=== PATIENT | female | born 1975 | race Two or more races ===

== ENCOUNTER 2020-04-27 12:36 | Emergency (ER) | payer OTHER, SELFPAY ==
[2020-04-27 12:51] VITALS: BP 153/74; PULSE 80; RESP 15; TEMP 36.4; O2SAT 99; BMI 27.3
--- NOTE | 2020-04-27 13:08 | ED.URI ---
HPI - URI/Sore Throat General Chief Complaint: Upper Respiratory Symptoms Stated Complaint: covid test Time Seen by Provider: 04/27/20 12:53 Source: patient Mode of arrival: ambulatory Limitations: no limitations History of Present Illness HPI Narrative: Cough, loss of taste since yesterday. Granddaughter at home has a cough as well. No fevers or chills. Onset (ago): hour(s) ( Yesterday) Consistency: constant Severity: mild Able to tolerate fluids by mouth: Yes Context: sick contacts Related Data Allergies Allergy/AdvReac Type Severity Reaction Status Date / Time No Known Allergies Allergy Verified 04/27/20 12:54 [No Known Allergies*] Review of Systems Review of Systems: Yes all other systems are reviewed and are negative Constitutional: Constitutional: Reports no additional constitutional complaints, Denies body ache(s), Denies chills, Denies fever(s), Denies headache(s) and Denies weakness Comments: loss of taste Eyes: Eyes: Reports no additional eye complaints and Denies change in vision ENT: Reports system reviewed and no additional complaints, except as documented, Denies headache(s), Denies nasal congestion, Denies nasal discharge and Denies neck pain Cardiovascular: Cardiovascular: Reports no additional cardiovascular complaints, Denies chest pain, Denies leg edema and Denies dyspnea Respiratory: Respiratory: Reports no additional respiratory complaints, Reports cough and Denies dyspnea Gastrointestinal: Gastrointestinal: Reports no additional gastrointestinal complaints, Denies abdominal pain, Denies diarrhea, Denies nausea and Denies vomiting Genitourinary: Genitourinary: Reports no additional female genitourinary complaints and Denies urinary incontinence Musculoskeletal: Musculoskeletal: Reports no additional musculoskeletal complaints, Denies back pain, Denies arthralgias, Denies joint swelling, Denies neck pain, Denies numbness and Denies tingling Integumentary/Breasts: Skin/Breast: Reports system reviewed and no additional complaints, except as docu and Denies rash Neurologic: Reports system reviewed and no additional complaints, except as documented, Denies Abnormal speech present, Denies headache(s), Denies numbness, Denies tingling and Denies weakness PMFSH Past Medical History Source: obtained from family and nursing notes reviewed Medical History No known health problems Social History Social History Advance Directives: No Advance Directives Information Provided: Yes Physical Exam Vital Signs and I&O and Narrative: Vital Signs and I&O: Vital Signs Temp 97.6 F 04/27/20 12:51 Pulse 80 04/27/20 12:51 Resp 15 04/27/20 12:51 BP 153/74 H 04/27/20 12:51 Pulse Ox 99 04/27/20 12:51 Intake & Output 04/26/20 04/27/20 04/27/20 18:59 06:59 18:59 Weight 65.771 kg Body Mass Index 27.3 Const: General: cooperative, healthy appearing, comfortable and no acute distress Orientation/consciousness: patient oriented x3 Limitations: no limitations HENMT: Head: Yes normal to inspection Ears: hearing grossly normal bilaterally General nose exam: Normal external nose present Face and sinus: Yes normal facial exam Mouth: Normal oral and palatal mucosa present Throat: Yes posterior oropharynx normal Eyes: General: appearance normal, both eyes and all related structures Pupils: Equal, round and reactive pupils present Neck: Neck: Yes normal visual inspection Chest: Chest palpation & inspection: normal inspection of the chest Resp: Effort & Inspection: normal respiratory effort Auscultation: clear to auscultation bilaterally Cardio: Rate: regular rate Rhythm: regular rhythm Peripheral pulses: Peripheral pulses 2+ throughout GI: Inspection: Yes normal to inspection Palpation (GI): Soft to palpation and nontender Auscultation: normal bowel sounds Back/Spine/Pelvis: Thoracic/Lumbar Spine: thoracic and lumbar spine normal to inspection Skin: General skin exam: no rashes or lesions noted Neuro: General: patient oriented x3, no focal motor deficits and normal sensation to monofilament Cranial nerves: Yes Equal, round and reactive pupils present Cognition (Neuro): normal cognition Speech: No Abnormal speech present Gait exam (Neuro): Normal gait present Motor exam (neuro): 5/5 motor strength present throughout Extrem: General: Yes normal to inspection MDM - URI/Sore Throat MDM Narrative Medical decision making narrative: cough and loss of taste since yesterday. Well appearing. Stable vital signs. Requesting COVID testing. This was sent. Reviewed worrisome signs and symptoms of when to return to the emergency department. Comfortable discharge home. Discharge Plan Discharge Clinical Impression: Viral infection Patient Disposition: Home, Self-Care Instructions: Viral Syndrome (ED) Additional Instructions: we have tested due today for COVID-19. We will call you in 1-2 days with her test results. If her test result is positive you will need to self-quarantine for total of 14 days. Increase fluids, rest Motrin or Tylenol for pain or fever if able as needed. Referrals: Physician,Unknown [Primary Care Provider] - 2 days Interventions: ED Discharge Assessment Last Done: 04/27/20 13:19 Discharge Date/Time: 04/27/20 13:20
== END 2020-04-27 13:20 | disposition home or self-care (01) ==
LOC: HO.ED 13:05
PROVIDERS: Nurse Practitioner Family; Emergency Provider Internal Medicine
DX: B34.9 Viral infection, unspecified (principal); Z20.828 Contact with and (suspected) exposure to other viral communicable diseases
CPT/HCPCS: 87635; 99283

== ENCOUNTER 2020-06-07 12:13 | Outpatient (REF) | payer OTHER, SELFPAY ==
[2020-06-07 13:40] LABS: MANUAL DIFF FLAG NO
[2020-06-07 13:45] LABS: Basophils Absolute Auto 0.1 X10*3/uL (0.0-0.2); Basophils Percent Auto 0.9 % (0-2); Eosinophils Absolute Auto 0.1 X10*3/uL (0.0-0.4); Eosinophils Percent Auto 1.7 % (0-4); Hemoglobin 12.6 g/dl (12.0-16.0); Imm Gran Abs Auto 0.03 X10*3/uL (0.00-0.03); Imm Gran Pct Auto 0.5 % (0.0-0.4); Lymphocytes Percent Auto 30.6 % (20-40); Mean Corpuscular HGB Conc 32.3 g/dl (31.0-35.0); Mean Corpuscular Hemoglobin 28.8 pg (27.0-33.0); Mean Platelet Volume 10.8 fL (9.4-12.3); Monocytes Absolute Auto 0.5 X10*3/uL (0.1-1.2); Neutrophils Absolute Auto 3.9 X10*3/uL (2.0-8.3); Neutrophils Percent Auto 59.3 % (45-73); Platelet Count 348 X10*3/uL (160-400); Red Blood Count 4.38 X10*6/uL (4.20-5.50); Red Cell Distribution Width 12.7 % (11.0-16.0); White Blood Count 6.6 X10*3/uL (4.8-10.8)
[2020-06-07 14:13] LABS: Alanine Aminotransferase 11 U/L (0-31); Albumin Level 4.1 g/dL (3.5-5.0); Alkaline Phosphatase 73 U/L (39-117); Anion Gap 10 (12-20); Aspartate Amino Transferase 17 U/L (5-31); Bilirubin Total 0.5 mg/dL (0.0-1.0); Blood Urea Nitrogen 11 mg/dL (9-16); Calcium 9.5 mg/dL (8.4-10.2); Carbon Dioxide 27 mmol/L (22-29); Chloride 104 mmol/L (96-108); Estimated Glomerular Filt Rate > 60; Glucose Random 97 mg/dL (60-115); Potassium 4.3 mmol/l (3.3-5.1); Sodium 137 mmol/L (135-145); Total Protein 7.3 g/dL (6.5-8.0)
[2020-06-07 14:21] LABS: Prothrombin Time 12.1 SEC (10.8-13.0)
[2020-06-07 14:24] LABS: Partial Thromboplastin Time 31.4 SEC (24.1-38.0)
[2020-06-07 14:34] LABS: Thyroid Stimulating Hormone 0.86 uIU/mL (0.32-4.0)
== END 2020-06-07 12:14 | disposition home or self-care (01) ==
LOC: HO.10HDL 12:13
PROVIDERS: Visit Provider Internal Medicine
DX: Z01.818 Encounter for other preprocedural examination (principal)
CPT/HCPCS: 36415; 80053; 84443; 85025; 85610; 85730

== ENCOUNTER 2020-07-24 15:37 | Outpatient (REF) | payer OTHER, SELFPAY | END 2020-07-24 15:38 | disposition home or self-care (01) | LOC: HO.LNP 15:37 | PROVIDERS: Visit Provider Internal Medicine | DX: T81.89XA Other complications of procedures, not elsewhere classified, initial encounter (principal) | CPT/HCPCS: 87071; 87077; 87186; 87205 ==

== ENCOUNTER 2020-08-12 13:39 | Inpatient (IN) | payer OTHER, SELFPAY ==
[2020-08-12 14:26] VITALS: BP 128/68; PULSE 97; RESP 17; TEMP 37; O2SAT 100; BMI 27.3
[2020-08-12 15:34] VITALS: BP 130/64; PULSE 92; RESP 18; TEMP 37.5; O2SAT 100
--- NOTE | 2020-08-12 15:35 | CT_ITS ---
EXAMINATION: CT ABDOMEN AND PELVIS WITH CONTRAST CLINICAL INFORMATION: Redness, swelling status post tummy tuck. Rule out abscess COMPARISON: MRI and CT scans 09/25/2017 TECHNIQUE: Multidetector volumetric images were obtained from the superior aspect of the liver through the pubic symphysis following administration 85 mL of Omnipaque 350 intravenous contrast. Sagittal and coronal reformatted images were obtained on the technologist's workstation. Oral contrast: No This CT examination was performed using dose optimization techniques as appropriate, variously including the following: *Automated exposure control *Adjustment of mA and/or kV according to patient size (this includes techniques or standardized protocols for targeted exams where dose is matched to indication/reason for exam; i.e. extremities or head) *Use of iterative reconstruction technique DLP: 510 mGy-cm FINDINGS: LUNG BASES: The visualized lung bases are unremarkable. LIVER, GALLBLADDER, AND BILIARY TREE: Again seen are several hemangiomata in the liver fully characterized on the prior MRI 09/25/2017 the largest is exophytic from the lateral segment of the left lobe of the liver and is unchanged in size. There is a 2 cm hemangioma in the right lobe of liver, also unchanged. Smaller lesions inferiorly in segment 6 are less well seen than on the prior MRI, not convincingly changed. No new lesions. No biliary ductal dilatation. The gallbladder is unremarkable with no evidence of radiopaque gallstones, gallbladder wall thickening, or obvious pericholecystic inflammatory changes. PANCREAS: Unremarkable. SPLEEN: Unremarkable. ADRENAL GLANDS: Unremarkable. KIDNEYS AND URETERS: The kidneys are normal in size, shape, and attenuation. No hydronephrosis, hydroureter, or calculi seen. No perinephric stranding. BLADDER: Unremarkable. GASTROINTESTINAL TRACT: Small hiatal hernia is present, new from prior study. The stomach and small bowel are nondilated. Normal appendix. Scattered colonic diverticulosis. No evidence of colitis or diverticulitis. ABDOMINAL WALL: There are postoperative changes consistent with history of recent abdominoplasty. There is subcutaneous fat that extends posteriorly between the rectus abdominis. There is circumferential fluid and fat stranding of the subcutaneous fat of the upper abdomen. There is a focal fluid collection across the anterior pelvis measuring 15.7 cm transverse by 2.2 cm AP. This extends cephalad to the left anterior abdominal wall at the level of the umbilicus where it measures 7.6 cm transverse by 1.5 cm AP. The entire collection measures 11.2 cm craniocaudal. There is incomplete peripheral enhancement, with peripheral rim enhancement posteriorly but not seen contiguously anteriorly there is overlying fluid and fat stranding. Also seen is skin thickening of the anterior abdominal wall. LYMPH NODES: Normal. VASCULAR: Unremarkable. PELVIC VISCERA: No adnexal mass. There is a heterogeneous enhancement pattern of the lower uterine segment and cervix, similar to the prior study. OSSEOUS STRUCTURES: Degenerative disc disease with vacuum disc phenomenon at L5-S1. There is a rudimentary disc at S1-S2. No acute or suspicious osseous abnormality. CT/CT abdomen pelvis w con IMPRESSION: Superimposed post on postoperative changes from prior abdominoplasty, there is a fluid collection within the subcutaneous fat of the pelvis and left anterior abdominal wall, superficial to the abdominal pelvic wall musculature, measuring up to 15.7 cm transverse by 2.2 cm AP by 11.2 cm craniocaudal. There is incomplete rim enhancement. This could represent a sterile or infected postoperative fluid collection. It is superficial and would be readily amenable to aspiration as clinically indicated. Also seen is fluid and fat stranding of the anterior abdomen with skin thickening of the anterior abdominal wall. Although these findings could be seen in the setting of cellulitis, they could be postoperative as well. Fluid and fat stranding are seen extending along both flanks and posteriorly at the level of the umbilicus and above. This is nonspecific also. The circumferential involvement raises the question of anasarca or dependent edema rather than circumferential soft tissue infection. There is a heterogeneous enhancement pattern of the lower uterine segment and cervix. The appearance was similar on the prior study. This can be normal but the degree of heterogeneity is slightly greater than typically seen. Consider correlation with direct visualization on gynecologic exam including Pap smear.
--- NOTE | 2020-08-12 15:37 | ED_ITS ---
HPI - Wound/Laceration General Chief Complaint: Wound/Laceration Stated Complaint: post op infection Time Seen by Provider: 08/12/20 15:21 Source: patient Mode of arrival: ambulatory Limitations: no limitations History of Present Illness HPI narrative: 45 yo female here with redness, swelling and open wounds to betzaida gutierrez s/p obdulio núñez 07/01/21. Went to [place] and had procedure. After flight home noticed wound to her lower abdomen, also had incision around umbilucus. Patient was seen by her primary care doctor and placed on reportedly 2 weeks of cephalexin. She finished this but continues to have drainage, open wounds, redness and tenderness to the abdomen. She tells me yesterday she had a temperature of a 100.6 degrees with some chills. Related Data Home Medications Medication Instructions Recorded Confirmed No Known Home Meds 08/12/20 08/12/20 Allergies Allergy/AdvReac Type Severity Reaction Status Date / Time No Known Allergies Allergy Verified 04/27/20 12:54 [No Known Allergies*] Review of Systems Review of Systems: Yes all other systems are reviewed and are negative Constitutional: Constitutional: Reports no additional constitutional complaints, Denies body ache(s), Reports chills, Reports fever(s), Denies headache(s) and Denies weakness Eyes: Eyes: Reports no additional eye complaints and Denies change in vision ENT: Reports system reviewed and no additional complaints, except as documented, Denies dizziness, Denies headache(s), Denies nasal congestion, Denies nasal discharge and Denies neck pain Cardiovascular: Cardiovascular: Reports no additional cardiovascular complaints, Denies chest pain, Denies leg edema and Denies dyspnea Respiratory: Respiratory: Reports no additional respiratory complaints, Denies cough and Denies dyspnea Gastrointestinal: Gastrointestinal: Reports no additional gastrointestinal complaints, Reports abdominal pain, Denies diarrhea, Denies nausea and Denies vomiting Genitourinary: Genitourinary: Reports no additional female genitourinary complaints and Denies urinary incontinence Musculoskeletal: Musculoskeletal: Reports no additional musculoskeletal complaints, Denies back pain, Denies arthralgias, Denies joint swelling, Denies neck pain, Denies numbness and Denies tingling Integumentary/Breasts: Skin/Breast: Reports system reviewed and no additional complaints, except as docu, Reports swelling, Denies rash and Reports wounds Neurologic: Denies Abnormal speech present, Denies dizziness, Denies headache(s), Denies numbness, Denies tingling and Denies weakness PMFSH Past Medical History Attestation statement: The following information was validated with the patient. Source: old records reviewed and nursing notes reviewed Medical History No known health problems Wound infection after surgery Surgical History Previous section Status post abdominoplasty Social History Social History Alcohol intake: never Smoking Status: Never smoker Advance Directives: No Advance Directives Information Provided: Yes Physical Exam Vital Signs: Vital Signs: Last Vital Signs Temp 99.5 F 08/12/20 15:34 Pulse 92 08/12/20 15:34 Resp 18 08/12/20 15:34 BP 130/64 08/12/20 15:34 Pulse Ox 100 08/12/20 15:34 Body Mass Index 27.3 Const: General: cooperative, healthy appearing, comfortable and no acute distress Orientation/consciousness: patient oriented x3 Limitations: no limitations HENMT: Head: Yes normal to inspection Ears: hearing grossly normal bi laterally General nose exam: Normal external nose present Face and sinus: Yes normal facial exam Mouth: Normal oral and palatal mucosa present Throat: Yes posterior oropharynx normal Eyes: General: appearance normal, both eyes and all related structures Pupils: Equal, round and reactive pupils present Neck: Neck: Yes normal visual inspection Chest: Chest palpation & inspection: normal inspection of the chest Resp: Effort & Inspection: normal respiratory effort Auscultation: clear to auscultation bilaterally Cardio: Rate: regular rate Rhythm: regular rhythm Peripheral pulses: Peripheral pulses 2+ throughout GI: Other: Inspection: Yes normal to inspection Palpation (GI): Tenderness to palpation present (GI) (Mild tenderness. Some firmness and induration around the wounds. ) Auscultation: normal bowel sounds Back/Spine/Pelvis: Thoracic/Lumbar Spine: thoracic and lumbar spine normal to inspection Skin: General skin exam: no rashes or lesions noted Neuro: General: patient oriented x3, no focal motor deficits and normal sensation to monofilament Cranial nerves: Yes Equal, round and reactive pupils present Cognition (Neuro): normal cognition Speech: No Abnormal speech present Gait exam (Neuro): Normal gait present Motor exam (neuro): 5/5 motor strength present throughout Extrem: General: Yes normal to inspection Course Course Course Narrative: 45 year old female here with nonhealing surgical wounds, drainage, redness, tenderness and now fever status post tummy tuck in [place]. Patient has 2 open wounds with local erythema, tenderness, firmness. The lower wound has some tunneling with exudate covering the wound base. Patient will need labs including blood cultures and lactic acid. Will check CT abdomen and pelvis to rule out abscess and evaluate extent. At this time infection is suspected. Antibiotics ordered. 1600-Seen by Dr Thompson. Wound culture sent. Patient will likely need admission. 1715-CT reviewed with Dr. thompson Plan for admission. MDM - Wound/Laceration Medical Records Attestation: I reviewed the patient's medical records. Lab Data Attestation: I reviewed the patient's lab results. Result diagrams: 08/12/20 15:55 08/12/20 15:55 Labs: Lab Results 08/12/20 08/12/20 08/12/20 Range/Units 15:55 15:55 15:55 WBC 12.0 H (4.8-10.8) X10*3/uL RBC 3.77 L (4.20-5.50) X10*6/uL Hgb 9.6 L D (12.0-16.0) g/dl Hct 31.5 L (37-47) % MCV 83.6 (80-98) fL MCH 25.5 L (27.0-33.0) pg MCHC 30.5 L (31.0-35.0) g/dl RDW 13.8 (11.0-16.0) % Plt Count 360 (160-400) X10*3/uL MPV 10.8 (9.4-12.3) fL Immature Gran % (Auto) 0.3 (0.0-0.4) % Neut % (Auto) 69.8 (45-73) % Lymph % (Auto) 20.9 (20-40) % Mayes % (Auto) 7.9 (2-11) % Eos % (Auto) 0.7 (0-4) % Baso % (Auto) 0.4 (0-2) % Lymph # (Auto) 2.5 (1.2-4.9) X10*3/uL Mayes # (Auto) 1.0 (0.1-1.2) X10*3/uL Eos # (Auto) 0.1 (0.0-0.4) X10*3/uL Baso # (Auto) 0.1 (0.0-0.2) X10*3/uL Abs Immat Gran (auto) 0.03 (0.00-0.03) X10*3/uL Absolute Neuts (auto) 8.3 (2.0-8.3) X10*3/uL Absolute Nucleated RBC 0.000 (0.0-0.012) X10*3/uL Nucleated RBC % (auto) 0.0 (0.0-0.2) /100WBC Sodium 138 (135-145) mmol/L Potassium 4.0 (3.3-5.1) mmol/l Chloride 102 (96-108) mmol/L Carbon Dioxide 25 (22-29) mmol/L Anion Gap 15 (12-20) BUN 8 L (9-16) mg/dL Creatinine 0.73 (0.5-1.4) mg/dL Estim Creat Clear Calc 84.4 Estimated GFR > 60 Random Glucose 86 (60-115) mg/dL Lactic Acid 0.8 (0.5-2.0) mmol/L Calcium 9.0 (8.4-10.2) mg/dL Total Bilirubin 1.0 (0.0-1.0) mg/dL Direct Bilirubin 0.3 (0.0-0.5) mg/dL AST 24 D (5-31) U/L ALT 7 (0-31) U/L Alkaline Phosphatase 76 (39-117) U/L Total Protein 7.4 (6.5-8.0) g/dL Albumin 3.9 (3.5-5.0) g/dL COVID-19 ([facility]) (Negative) COVID-19 Clin Com 08/12/20 Range/Units 15:55 WBC (4.8-10.8) X10*3/uL RBC (4.20-5.50) X10*6/uL Hgb (12.0-16.0) g/dl Hct (37-47) % MCV (80-98) fL MCH (27.0-33.0) pg MCHC (31.0-35.0) g/dl RDW (11.0-16.0) % Plt Count (160-400) X10*3/uL MPV (9.4-12.3) fL Immature Gran % (Auto) (0.0-0.4) % Neut % (Auto) (45-73) % Lymph % (Auto) (20-40) % Mayes % (Auto) (2-11) % Eos % (Auto) (0-4) % Baso % (Auto) (0-2) % Lymph # (Auto) (1.2-4.9) X10*3/uL Mayes # (Auto) (0.1-1.2) X10*3/uL Eos # (Auto) (0.0-0.4) X10*3/uL Baso # (Auto) (0.0-0.2) X10*3/uL Abs Immat Gran (auto) (0.00-0.03) X10*3/uL Absolute Neuts (auto) (2.0-8.3) X10*3/uL Absolute Nucleated RBC (0.0-0.012) X10*3/uL Nucleated RBC % (auto) (0.0-0.2) /100WBC Sodium (135-145) mmol/L Potassium (3.3-5.1) mmol/l Chloride (96-108) mmol/L Carbon Dioxide (22-29) mmol/L Anion Gap (12-20) BUN (9-16) mg/dL Creatinine (0.5-1.4) mg/dL Estim Creat Clear Calc Estimated GFR Random Glucose (60-115) mg/dL Lactic Acid (0.5-2.0) mmol/L Calcium (8.4-10.2) mg/dL Total Bilirubin (0.0-1.0) mg/dL Direct Bilirubin (0.0-0.5) mg/dL AST (5-31) U/L ALT (0-31) U/L Alkaline Phosphatase (39-117) U/L Total Protein (6.5-8.0) g/dL Albumin (3.5-5.0) g/dL COVID-19 ([facility]) Negative (Negative) COVID-19 Clin Com See Note Imaging Data CT scan - abdomen: Attestation: I personally reviewed and interpreted this imaging study as follows: Radiologist's impression: Superimposed post on postoperative changes from prior abdominoplasty, there is a fluid collection within the subcutaneous fat of the pelvis and left anterior abdominal wall, superficial to the abdominal pelvic wall musculature, measuring up to 15.7 cm transverse by 2.2 cm AP by 11.2 cm craniocaudal. There is incomplete rim enhancement. This could represent a sterile or infected postoperative fluid collection. It is superficial and would be readily amenable to aspiration as clinically indicated. Also seen is fluid and fat stranding of the anterior abdomen with skin thickening of the anterior abdominal wall. Although these findings could be seen in the setting of cellulitis, they could be postoperative as well. Fluid and fat stranding are seen extending along both flanks and posteriorly at the level of the umbilicus and above. This is nonspecific also. The circumferential involvement raises the question of anasarca or dependent edema rather than circumferential soft tissue infection. There is a heterogeneous enhancement pattern of the lower uterine segment and cervix. The appearance was similar on the prior study. This can be normal but the degree of heterogeneity is slightly greater than typically seen. Consider correlation with direct visualization on gynecologic exam including Pap smear. Discharge Plan Discharge Clinical Impression: Wound infection after surgery, Status post abdominoplasty, Leukocytosis Patient Disposition: Admitted As Inpatient
[2020-08-12 16:02] LABS: Basophils Absolute Auto 0.1 X10*3/uL (0.0-0.2); Basophils Percent Auto 0.4 % (0-2); Eosinophils Absolute Auto 0.1 X10*3/uL (0.0-0.4); Eosinophils Percent Auto 0.7 % (0-4); Hematocrit 31.5 % (37-47); Hemoglobin 9.6 g/dl (12.0-16.0); Imm Gran Abs Auto 0.03 X10*3/uL (0.00-0.03); Imm Gran Pct Auto 0.3 % (0.0-0.4); Lymphocytes Absolute Auto 2.5 X10*3/uL (1.2-4.9); Lymphocytes Percent Auto 20.9 % (20-40); MANUAL DIFF FLAG NO; Mean Corpuscular HGB Conc 30.5 g/dl (31.0-35.0); Mean Corpuscular Hemoglobin 25.5 pg (27.0-33.0); Mean Corpuscular Volume 83.6 fL (80-98); Mean Platelet Volume 10.8 fL (9.4-12.3); Monocytes Percent Auto 7.9 % (2-11); Neutrophils Absolute Auto 8.3 X10*3/uL (2.0-8.3); Neutrophils Percent Auto 69.8 % (45-73); Platelet Count 360 X10*3/uL (160-400); Red Blood Count 3.77 X10*6/uL (4.20-5.50); Red Cell Distribution Width 13.8 % (11.0-16.0)
[2020-08-12] MEDS: Piperacillin Sodium/Tazobactam 3.375 GM in 0.9 % Sodium Chloride 50 ML IV ×2 (16:09→21:56)
[2020-08-12 16:20] LABS: COVID-19 Test Negative (Negative)
[2020-08-12 16:21] LABS: Lactic Acid 0.8 mmol/L (0.5-2.0)
[2020-08-12] MEDS: iohexoL 350 MG/ML 100 ML INFUS..BTL IV (16:23)
[2020-08-12 16:27] LABS: Alanine Aminotransferase 7 U/L (0-31); Albumin Level 3.9 g/dL (3.5-5.0); Alkaline Phosphatase 76 U/L (39-117); Anion Gap 15 (12-20); Aspartate Amino Transferase 24 U/L (5-31); Bilirubin Direct 0.3 mg/dL (0.0-0.5); Blood Urea Nitrogen 8 mg/dL (9-16); Carbon Dioxide 25 mmol/L (22-29); Chloride 102 mmol/L (96-108); Creatinine Clr Calc Pharmacy 84.4; Estimated Glomerular Filt Rate > 60; Glucose Random 86 mg/dL (60-115); Sodium 138 mmol/L (135-145); Total Protein 7.4 g/dL (6.5-8.0)
--- NOTE | 2020-08-12 16:32 | PM.HPGS ---
History of Present Illness History of Present Illness Date of Service: 08/13/20 Chief complaint: Wound infection S/P abdominoplasty Narrative: Kb Lim is a 45 year old female who came to the emergency room today because of an open wound on a recent abdominoplasty incision. She says she traveled to [place] last June 2020 and underwent abdominoplasty on 07/01/2020. She says she came back to [facility] after a little over a week. She had noticed some pain and drainage on 2 areas of the abdominal wall. She has noted a nonhealing wound on the mid portion of the transverse incision in the lower abdomen, wound as well on the umbilicus. She has noticed this for several days now. She says she had a low-grade temperature yesterday at 100.6. She describes some pain on the incision. In emergency room and was noted to have some redness and warmth incision as were as her ability this, with 2 open wounds. Furthermore, this seems to be some patchy areas of nonviable skin is fat. I was therefore consulted. Review of Systems Constitutional: Constitutional: Denies chills and Reports fever(s) (Low-grade) Cardiovascular: Cardiovascular: Denies chest pain, Denies dyspnea and Denies dyspnea on exertion Respiratory: Respiratory: Denies cough, Denies dyspnea and Denies dyspnea on exertion Gastrointestinal: Gastrointestinal: Denies hematochezia and Denies change in bowel habits Genitourinary: Genitourinary: Denies hematuria Musculoskeletal: Musculoskeletal: Denies back pain and Denies limited range of motion Neurologic: Denies focal weakness and Denies convulsions Psychiatric: Psychiatric: Denies depression and Denies mood swings [facility] Past Medical History Medical History No known health problems Wound infection after surgery Surgical History Surgical History Previous section Status post abdominoplasty Social History Social History Alcohol intake: never Smoking Status: Never smoker Advance Directives: No Advance Directives Information Provided: Yes Travel History Recent Out of Country Travel Within the Last 8 Weeks: Yes Out of Country Travel Destination/s Comment: [facility], for abdominoplasty Exposure or Possible Exposure to Illness During Travel: No Meds Allergies Allergy/AdvReac Type Severity Reaction Status Date / Time No Known Allergies Allergy Verified 04/27/20 12:54 [No Known Allergies*] Home Medications Medication Instructions Recorded Confirmed Type No Known Home Meds 08/12/20 08/12/20 History Physical Exam Vital Signs: Vital Signs: Last Vital Signs Temp 99.5 F 08/12/20 15:34 Pulse 92 08/12/20 15:34 Resp 18 08/12/20 15:34 BP 130/64 08/12/20 15:34 Pulse Ox 100 08/12/20 15:34 Body Mass Index 27.3 Const: Other: Looks well, nontoxic looking General: comfortable and no acute distress Orientation/consciousness: patient oriented x3 Neck: Neck: Yes no lymphadenopathy Resp: Auscultation: clear to auscultation bilaterally Cardio: Rhythm: regular rhythm GI: Palpation (GI): Soft to palpation, nontender and no guarding Abdomen image: 1. Incision 2. Open wound about 2 cm with mild cellulitis 3. Open wound about 2 cm with mild cellulitis Neuro: General: patient oriented x3 Results Results Labs: Short CBC 08/12/20 Range/Units 15:55 WBC 12.0 H (4.8-10.8) X10*3/uL Hgb 9.6 L D (12.0-16.0) g/dl Hct 31.5 L (37-47) % Plt Count 360 (160-400) X10*3/uL BMP 08/12/20 15:55 Sodium 138 Potassium 4.0 Chloride 102 Carbon Dioxide 25 BUN 8 L Creatinine 0.73 Calcium 9.0 Liver Function 08/12/20 Range/Units 15:55 Total Bilirubin 1.0 (0.0-1.0) mg/dL Direct Bilirubin 0.3 (0.0-0.5) mg/dL AST 24 D (5-31) U/L ALT 7 (0-31) U/L Alkaline Phosphatase 76 (39-117) U/L Albumin 3.9 (3.5-5.0) g/dL Assessment and Plan (1) Wound infection after surgery: Status: Acute She underwent abdominoplasty in [facility] last and has had warmth, drainage and fever at home the past few days. She ahs 2 open wounds, one on the umbilicus, and one on the midportion of the low transverse abdominoplasty incision. Both are about 2 cm in diameter, with exposed subcutaneous fat that appear to have some fat necrosis. She has warmth on the surrounding areas and some redness suggestive of a wound infection. Her CT scan shows a large fluid collection, likely seroma. I will start her on IV abx for a presumed wound infection. I explained to her that there is a change she will need operative debridement of the 2 open wounds as well as drainage of the fluid collection depending on how she does overnight. She is nontoxic looking and does not show signs of a necrotizing process. She understands the plan. I have cultured the open wound on the lower abdomen. We will adjust her abx course depending on the culture report. (2) Status post abdominoplasty: Status: Acute
[2020-08-12 17:06] LABS: Glucose Urine UA NEG (NEG); Leukocyte Esterase Urine NEG (NEG); Nitrite Urine NEG (NEG); Specific Gravity - Urine <= 1.005 (1.005-1.025); Urine Blood TRACE (NEG); Urine Ketones NEG (NEG); Urine Protein NEG (NEG-TRACE)
[2020-08-12 17:08] LABS: Appearance Urine CLEAR; Color Urine STRAW; UPreg QC Valid YES; Urine Pregnancy NEGATIVE (NEGATIVE)
[2020-08-12 17:18] LABS: Squamous Epithelial Cell Urine 2+ /LPF; WBC Urine 0-2 /HPF (0-4)
[2020-08-12] MEDS: Lactated Ringers 1,000 ML 80 ML IVCONT (17:38)
[2020-08-12 18:07] VITALS: BP 111/61; PULSE 100; RESP 18; TEMP 37.4; O2SAT 98
--- NOTE | 2020-08-12 21:19 | PC.NURSE ---
DUPLICATE UACC ORDERED- SECOND CANCELLED.
[2020-08-13] VITALS (8 sets, daily range): BP systolic 106–127; BP diastolic 56–73; PULSE 82–96; RESP 13–19; TEMP 36.5–37.2; O2SAT 97–100
[2020-08-13] MEDS: Piperacillin Sodium/Tazobactam 3.375 GM in 0.9 % Sodium Chloride 50 ML IV ×4 (03:37→21:40)
[2020-08-13] MEDS: Lactated Ringers 1,000 ML 80 ML IVCONT (04:49)
[2020-08-13] MEDS: 0.9 % Sodium Chloride Flush 3 ML SYRINGE IVFLUSH ×3 (08:04→21:40)
[2020-08-13 08:19] LABS: Hematocrit 29.4 % (37-47); Hemoglobin 9.1 g/dl (12.0-16.0); Mean Corpuscular Hemoglobin 25.7 pg (27.0-33.0); Mean Corpuscular Volume 83.1 fL (80-98); Mean Platelet Volume 11.3 fL (9.4-12.3); Platelet Count 336 X10*3/uL (160-400); Red Blood Count 3.54 X10*6/uL (4.20-5.50); Red Cell Distribution Width 13.9 % (11.0-16.0); White Blood Count 9.6 X10*3/uL (4.8-10.8)
--- NOTE | 2020-08-13 09:23 | PC.NURSE ---
surgery at bedside, okay to eat.
[2020-08-13] MEDS: Lidocaine HCl 1 % 20 ML VIAL SUBCUT (10:11)
--- NOTE | 2020-08-13 11:27 | P.PNGS_ITS ---
Subjective Subjective Date of Service: 08/13/20 Interval history: feels a little better no fever overnight no severe pain on abdominoplasty Physical Exam Vital Signs: Vital Signs: Last Vital Signs Temp 97.9 F 08/13/20 03:40 Pulse 82 08/13/20 09:14 Resp 16 08/13/20 09:14 BP 112/65 08/13/20 09:14 Pulse Ox 98 08/13/20 09:14 Body Mass Index 27.3 Laboratory Results WBC 9.6 X10*3/uL (4.8 -10.8) 08/13/20 07:52 RBC 3.54 X10*6/uL (4. 20-5.50) L 08/13/20 07:52 Hgb 9.1 g/dl (12.0-16 .0) L 08/13/20 07:52 Hct 29.4 % (37-47) L 08/13/20 07:52 MCV 83.1 fL (80-98) 08/13/20 07:52 MCH 25.7 pg (27.0-33. 0) L 08/13/20 07:52 MCHC 31.0 g/dl (31.0-3 5.0) 08/13/20 07:52 RDW 13.9 % (11.0-16.0 ) 08/13/20 07:52 Plt Count 336 X10*3/uL (160 -400) 08/13/20 07:52 MPV 11.3 fL (9.4-12.3 ) 08/13/20 07:52 Immature Gran % (A uto) 0.3 % (0.0-0.4) 08/12/20 15:55 Neut % (Auto) 69.8 % (45-73) 08/12/20 15:55 Lymph % (Auto) 20.9 % (20-40) 08/12/20 15:55 [place] % (Auto) 7.9 % (2-11) 08/12/20 15:55 Eos % (Auto) 0.7 % (0-4) 08/12/20 15:55 Baso % (Auto) 0.4 % (0-2) 08/12/20 15:55 Lymph # (Auto) 2.5 X10*3/uL (1.2 -4.9) 08/12/20 15:55 [place] # (Auto) 1.0 X10*3/uL (0.1 -1.2) 08/12/20 15:55 Eos # (Auto) 0.1 X10*3/uL (0.0 -0.4) 08/12/20 15:55 Baso # (Auto) 0.1 X10*3/uL (0.0 -0.2) 08/12/20 15:55 Abs Immat Gran (au to) 0.03 X10*3/uL (0. 00-0.03) 08/12/20 15:55 Absolute Neuts (au to) 8.3 X10*3/uL (2.0 -8.3) 08/12/20 15:55 Absolute Nucleated RBC 0.000 X10*3/uL (0 .0-0.012) 08/13/20 07:52 Nucleated RBC % (a uto) 0.0 /100WBC (0.0- 0.2) 08/13/20 07:52 Sodium 138 mmol/L (135-1 45) 08/12/20 15:55 Potassium 4.0 mmol/l (3.3-5 .1) 08/12/20 15:55 Chloride 102 mmol/L (96-10 8) 08/12/20 15:55 Carbon Dioxide 25 mmol/L (22-29) 08/12/20 15:55 Anion Gap 15 (12-20) 08/12/20 15:55 BUN 8 mg/dL (9-16) L 08/12/20 15:55 Creatinine 0.73 mg/dL (0.5-1 .4) 08/12/20 15:55 Estim Creat Clear Calc 84.4 08/12/20 15:55 Estimated GFR > 60 08/12/20 15:55 Random Glucose 86 mg/dL (60-115) 08/12/20 15:55 Lactic Acid 0.8 mmol/L (0.5-2 .0) 08/12/20 15:55 Calcium 9.0 mg/dL (8.4-10 .2) 08/12/20 15:55 Total Bilirubin 1.0 mg/dL (0.0-1. 0) 08/12/20 15:55 Direct Bilirubin 0.3 mg/dL (0.0-0. 5) 08/12/20 15:55 AST 24 U/L (5-31) D 08/12/20 15:55 ALT 7 U/L (0-31) 08/12/20 15:55 Alkaline Phosphata se 76 U/L (39-117) 08/12/20 15:55 Total Protein 7.4 g/dL (6.5-8.0 ) 08/12/20 15:55 Albumin 3.9 g/dL (3.5-5.0 ) 08/12/20 15:55 Urine Color STRAW 08/12/20 16:57 Urine Appearance CLEAR 08/12/20 16:57 Urine pH 6.0 (5.0-8.0) 08/12/20 16:57 Ur Specific Gravit y <= 1.005 (1.005- 1.025) 08/12/20 16:57 Urine Protein NEG MG/DL (NEG-TR CASTRO) 08/12/20 16:57 Urine Glucose (UA) NEG MG/DL (NEG) 08/12/20 16:57 Urine Ketones NEG MG/DL (NEG) 08/12/20 16:57 Urine Blood TRACE (NEG) 08/12/20 16:57 Urine Nitrite NEG (NEG) 08/12/20 16:57 Ur Leukocyte Kati ase NEG (NEG) 08/12/20 16:57 Urine RBC 1-4 /HPF (0) 08/12/20 16:57 Urine WBC 0-2 /HPF (0-4) 08/12/20 16:57 Ur Squamous Epith Cells 2+ /LPF 08/12/20 16:57 Urine Bacteria NONE /LPF 08/12/20 16:[address] NEGATIVE (NEGATI VE) 08/12/20 16:57 COVID-19 ([facility]) Negative (Negati ve) 08/12/20 15:55 COVID-19 Clin Com See Note 08/12/20 15:55 Impressions Abdomen/Pelvis CT 08/12/20 15:35 IMPRESSION: Superimposed post on postoperative changes from prior abdominoplasty, there is a fluid collection within the subcutaneous fat of the pelvis and left anterior abdominal wall, superficial to the abdominal pelvic wall musculature, measuring up to 15.7 cm transverse by 2.2 cm AP by 11.2 cm craniocaudal. There is incomplete rim enhancement. This could represent a sterile or infected postoperative fluid collection. It is superficial and would be readily amenable to aspiration as clinically indicated. Also seen is fluid and fat stranding of the anterior abdomen with skin thickening of the anterior abdominal wall. Although these findings could be seen in the setting of cellulitis, they could be postoperative as well. Fluid and fat stranding are seen extending along both flanks and posteriorly at the level of the umbilicus and above. This is nonspecific also. The circumferential involvement raises the question of anasarca or dependent edema rather than circumferential soft tissue infection. There is a heterogeneous enhancement pattern of the lower uterine segment and cervix. The appearance was similar on the prior study. This can be normal but the degree of heterogeneity is slightly greater than typically seen. Consider correlation with direct visualization on gynecologic exam including Pap smear. Const: General: comfortable and no acute distress Resp: Effort & Inspection: normal respiratory effort Cardio: Rate: regular rate GI: Other: soft, some warmth on skin, redness has faded, 2 open wounds - umbilicus and lower abd along incision, with dry, exposed fat, no pus, superficial fat necrosis Progress Note: A&P Assessment and plan (1) Wound infection after surgery: Status: Acute Assessment and Plan: both open wounds now appear dry, with superficial necrosis of subcutaneous fat redness has faded WBC now normal does not appear to need debridement large amount of fluid under abdominal flap above fascia on CT I therefore explained to her it is best to do aspiration; explained technique of procedure, risks, benefits and alternatives and she had given consent I chose area to the left of the lower abdominal wound based on CT image skin prepped and draped lidocaine 1% used for local anesthesia I used a g20 needle, advanced into collection - clear, seroma fluid aspirated, 50 cc wet to dry dressings then applied to open wounds she tolerated the procedure well plan IV abx until sudarshan, then dc home will need office ffup for wound care (2) Status post abdominoplasty: Status: Acute Fall Risk Details Current Medications: Current Medications Generic Name Dose Route Start Last Admin Trade Name Freq PRN Reason Stop Dose Admin Acetaminophen 650 mg 08/12/20 16:41 Acetaminophen 325 Mg Tablet PO Q6H PRN Fever Piperacillin Sod/Tazobactam 50 mls @ 100 mls/hr 08/12/20 22:00 08/13/20 09:54 Sod 3.375 gm/ Sodium Chloride IV Infused Q6H PAXTON Infusion Morphine Sulfate 2 mg 08/12/20 16:41 Morphine Sulfate 2 Mg/Ml Cartridge IVPUSH Q3H PRN Pain Pharmacy Consult 1 each 08/12/20 16:50 Consult Rx Perform Med Rec MISCELLANE ONCE PRN Consult order Sodium Chloride 3 ml 08/13/20 00:00 08/13/20 08:04 0.9 % Sodium Chloride Flush 3 Ml Syringe IVFLUSH 3 ml QSHIFT PAXTON Administration Time Spent With Patient Time: Total time spent is greater than 50% in coordination of care (as documented) at patient's floor/unit and/or counseling patient: Time with patient: 15 - 24 minutes
--- NOTE | 2020-08-13 12:22 | PC.NURSE ---
called to med surg for report
--- NOTE | 2020-08-13 12:43 | PC.NURSE ---
nurse to nurse given to rj (rn), pt aware of plan of care for admission to hosp.
--- NOTE | 2020-08-13 15:48 | MHC.CM.NN ---
PATIENT IS FULLY INDEPENDENT NO DME OR VNA SERVICES. HER CAR IS IN THE C LOT. PLAN IS FOR IV ABX OVERNIGHT, AND DISCHARGE TOMORROW ON PO ABX. CASE MANAGEMENT FOLLOWING FOR ANY CHANGE IN DISCHARGE NEEDS.
[2020-08-13] MEDS: Acetaminophen 325 MG TABLET 650 MG PO (21:38)
[2020-08-14] MEDS: Piperacillin Sodium/Tazobactam 3.375 GM in 0.9 % Sodium Chloride 50 ML IV ×2 (03:57→10:04)
[2020-08-14 04:00] VITALS: BP 106/62; PULSE 77; RESP 18; TEMP 36.4; O2SAT 98
[2020-08-14 08:00] VITALS: BP 119/77; PULSE 83; RESP 18; TEMP 36.6; O2SAT 99
--- NOTE | 2020-08-14 09:20 | P.PNGS_ITS ---
Subjective Subjective Date of Service: 08/14/20 Interval history: feels well denies pain no fever Physical Exam Vital Signs: Vital Signs: Last Vital Signs Temp 97.8 F 08/14/20 08:00 Pulse 83 08/14/20 08:00 Resp 18 08/14/20 08:00 BP 119/77 08/14/20 08:00 Pulse Ox 99 08/14/20 08:00 Body Mass Index 27.3 Const: General: comfortable and no acute distress Resp: Effort & Inspection: normal respiratory effort Cardio: Rhythm: regular rhythm GI: Other: no cellulitis, open wound on umbilicus iwth exposed subq layer, no pus, no gangrene; oepn wound on lower abd along incision, clean, exposed subq fat, no gangrene or pus Progress Note: A&P Assessment and plan (1) Wound infection after surgery: Problem details: dressings changed wet to dry applied no cellulitis now ok to dc home aspirated yesterday - clear serous fluid ffup in office explained wound care to pt Status: Acute (2) Status post abdominoplasty: Status: Acute Fall Risk Details Current Medications: Current Medications Generic Name Dose Route Start Last Admin Trade Name Freq PRN Reason Stop Dose Admin Acetaminophen 650 mg 08/12/20 16:41 08/13/20 21:38 Acetaminophen 325 Mg Tablet PO 650 mg Q6H PRN Administration Fever Piperacillin Sod/Tazobactam 50 mls @ 100 mls/hr 08/12/20 22:00 08/14/20 05:00 Sod 3.375 gm/ Sodium Chloride IV Infused Q6H PAXTON Infusion Morphine Sulfate 2 mg 08/12/20 16:41 Morphine Sulfate 2 Mg/Ml Cartridge IVPUSH Q3H PRN Pain Pharmacy Consult 1 each 08/12/20 16:50 Consult Rx Perform Med Rec MISCELLANE ONCE PRN Consult order Sodium Chloride 3 ml 08/13/20 00:00 08/13/20 21:40 0.9 % Sodium Chloride Flush 3 Ml Syringe IVFLUSH 3 ml QSHIFT PAXTON Administration Time Spent With Patient Time: Total time spent is greater than 50% in coordination of care (as document ed) at patient's floor/unit and/or counseling patient: Time with patient: 15 - 24 minutes
[2020-08-14] MEDS: 0.9 % Sodium Chloride Flush 3 ML SYRINGE IVFLUSH (10:04)
--- NOTE | 2020-08-14 10:46 | MHC.CM.PN ---
pt dcd home no servceis
--- NOTE | 2020-08-16 10:24 | P.DS_ITS ---
DS: Providers Provider Date of Service: 08/16/20 Date of admission: 08/12/20 16:41 Primary care physician: Shadi Khan MD DS: Diagnosis Discharge Diagnosis (1) Wound infection after surgery: Status: Acute (2) Status post abdominoplasty: Status: Acute DS: Medications Discharge Medications Home Medications: Home Medications Medication Instructions Recorded Confirmed No Known Home Meds 08/12/20 08/12/20 Previous Rx's Medication Instructions Recorded amoxicillin-pot clavulanate 1 tab PO BID #14 tab 08/14/20 [Augmentin] DS: Summary Hospital Course Hospital Course: BRIEF HPI:Kb Lim is a 45 year old female who came to the emergency room today because of an open wound on a recent abdominoplasty incision. She says she traveled to [place] last June 2020 and underwent abdominoplasty on 07/01/2020. She says she came back to [facility] after a little over a week. She had noticed some pain and drainage on 2 areas of the abdominal wall. She has noted a nonhealing wound on the mid portion of the transverse incision in the lower abdomen, wound as well on the umbilicus. She has noticed this for several days now. She says she had a low-grade temperature yesterday at 100.6. She describes some pain on the incision. In the ED, she was noted to have some redness and warmth at the incision with [address] scan shows a large fluid collection, likely seroma. Surgery was therefore consulted. HOSPITAL COURSE: She was admitted to the surgical service for further treatment of the wound infection. She was started on IV zosyn, IVF. Possible need for operative debridement of the 2 open wounds as well as drainage of the fluid col lection was discussed. She was nontoxic appearing and without signs of a necrotizing process. Wound cultures were obtained. The patient had an uncomplicated recovery course. She improved symptomatically and the cellulitis improved with IV antibiotics. There was a large amount of fluid under abdominal flap above fascia on the left of the lower abdominal wound based on CT. It was decided to proceed with aspiration which was performed at bedside by Dr. Thompson with the patient's consent. Serous fluid was extracted. She was kept inpatient one more day for IV abx. Wet to dry dressings were appli ed to her two open wounds. Her WBC count normalized and her vitals remained stable. On the day of discharge, there was no evidence of cellulitis. She was instructed on daily dressing changes with wet to dry dressings. She is to follow up with Dr. Thompson in office for further wound care. She was discharged to home on 08/14/20 in stable condition on a course of Augmentin. Wound cultures came back positive for Klebsiella pneumoniae and Staphylococcus aureus, resistant to Amoxicillin following her discharge. A new prescription for Levaquin 500mg PO daily was sent to her pharmacy and the patient was notified by Dr. Thompson. Status at Discharge Functional status at discharge: independent ambulation Overall status at discharge: patient is progressing back to baseline Time Spent with Patient Time attestation: Total time spent providing and/or coordinating discharge services: Discharge coordination time: Less than 30 minutes Physical Exam Vital Signs: Vital Signs: Last Vital Signs Temp 97.8 F 08/14/20 08:00 Pulse 83 08/14/20 08:00 Resp 18 08/14/20 08:00 BP 119/77 08/14/20 08:00 Pulse Ox 99 08/14/20 08:00 Body Mass Index 27.3 Const: General: healthy appearing, comfortable, no acute distress and alert Orientation/consciousness: patient oriented x3 Resp: Effort & Inspection: normal respiratory effort GI: Other: open wound on umbilicus with exposed subq layer, no pus, no gangrene; open wound on lower abd along incision, clean, exposed subq fat, no gangrene or pus Palpation (GI): Soft to palpation, nontender, no guarding and not rigid Skin: General skin exam: no rashes or lesions noted Neuro: General: patient oriented x3 Extrem: General: Yes no clubbing, cyanosis or edema DS: Data Data Completed and Pending Labs on day of discharge: Laboratory Tests 08/12/20 08/12/20 08/12/20 15:55 15:55 15:55 WBC 12.0 H RBC 3.77 L Hgb 9.6 L D Hct 31.5 L MCV 83.6 MCH 25.5 L MCHC 30.5 L RDW 13.8 Plt Count 360 MPV 10.8 Immature Gran % (Auto) 0.3 Neut % (Auto) 69.8 Lymph % (Auto) 20.9 [place] % (Auto) 7.9 Eos % (Auto) 0.7 Baso % (Auto) 0.4 Lymph # (Auto) 2.5 [place] # (Auto) 1.0 Eos # (Auto) 0.1 Baso # (Auto) 0.1 Abs Immat Gran (auto) 0.03 Absolute Neuts (auto) 8.3 Absolute Nucleated RBC 0.000 Nucleated RBC % (auto) 0.0 Sodium 138 Potassium 4.0 Chloride 102 Carbon Dioxide 25 Anion Gap 15 BUN 8 L Creatinine 0.73 Estim Creat Clear Calc 84.4 Estimated GFR > 60 Random Glucose 86 Lactic Acid 0.8 Calcium 9.0 Total Bilirubin 1.0 Direct Bilirubin 0.3 AST 24 D ALT 7 Alkaline Phosphatase 76 Total Protein 7.4 Albumin 3.9 Urine Color Urine Appearance Urine pH Ur Specific [place] Urine Protein Urine Glucose (UA) Urine Ketones Urine Blood Urine Nitrite Ur Leukocyte Esterase Urine RBC Urine WBC Ur Squamous Epith Cells Urine Bacteria Urine Test COVID-19 ([facility]) COVID-19 Voice[employer] Com 08/12/20 08/12/20 08/13/20 15:55 16:57 07:52 WBC 9.6 RBC 3.54 L Hgb 9.1 L Hct 29.4 L MCV 83.1 MCH 25.7 L MCHC 31.0 RDW 13.9 Plt Count 336 MPV 11.3 Immature Gran % (Auto) Neut % (Auto) Lymph % (Auto) [place] % (Auto) Eos % (Auto) Baso % (Auto) Lymph # (Auto) [place] # (Auto) Eos # (Auto) Baso # (Auto) Abs Immat Gran (auto) Absolute Neuts (auto) Absolute Nucleated RBC 0.000 Nucleated RBC % (auto) 0.0 Sodium Potassium Chloride Carbon Dioxide Anion Gap BUN Creatinine Estim Creat Clear Calc Estimated GFR Random Glucose Lactic Acid Calcium Total Bilirubin Direct Bilirubin AST ALT Alkaline Phosphatase Total Protein Albumin Urine Color STRAW Urine Appearance CLEAR Urine pH 6.0 Ur Specific [place] <= 1.005 Urine Protein NEG Urine Glucose (UA) NEG Urine Ketones NEG Urine Blood TRACE Urine Nitrite NEG Ur Leukocyte Esterase NEG Urine RBC 1-4 Urine WBC 0-2 Ur Squamous Epith Cells 2+ Urine Bacteria NONE Urine Test NEGATIVE COVID-19 ([facility]) Negative COVID-19 Voice[employer] Com See Note Preliminary micro results at discharge 08/12/20 16:04 Blood Culture - Preliminary Blood - Venous No growth after 48 hours. 08/12/20 15:55 Blood Culture - Preliminary Blood - Venous No growth after 48 hours. Discharge Plan Discharge Patient Disposition: Home, Self-Care Referrals: Shadi Khan MD [Primary Care Provider] - Shadi Thompson MD [Physician] - 1 Week Discharge Medications: No Action levofloxacin 500 mg tablet 500 mg PO DAILY Qty: 5 RF: 0 sulfamethoxazole-trimethoprim [Bactrim DS] 800-160 mg tablet 1 tab PO BID Qty: 10 RF: 0 Discharge Orders: Discharge Order (Routine); Ordered 08/14/20 Ordered By: Shadi Thompson Diet: regular diet Activity on Discharge: As tolerated Stand Alone Forms: Patient Portal Discharge page Activity Restrictions/Additional Instructions: wet to dry dressings with gauze to open wounds ok to shower call office for ffup in 2 weeks [phone] Visit Report Forms: Patient Portal Discharge page Care Plan Goals: Wound healing; return to baseline health & activity following recovery Health Concerns: S/p abdominoplasty; wound infection Plan of Treatment: Antibiotics and wound care; f/u in office with Dr. Thompson Discharge Date/Time: 08/14/20 11:53
== END 2020-08-14 11:53 | disposition home or self-care (01) | DRG 721 ==
LOC: HO.ED 15:28 → HO.EDOVER 17:01 → HO.S3 08-13 11:33
PROVIDERS: Nurse Practitioner Family; Admitting Provider Surgery; Emergency Provider Internal Medicine; PCP Internal Medicine; Visit Provider Surgery
DX: T81.41XA Infection following a procedure, superficial incisional surgical site, initial encounter (principal); L03.311 Cellulitis of abdominal wall; B96.1 Klebsiella pneumoniae [K. pneumoniae] as the cause of diseases classified elsewhere; B95.61 Methicillin susceptible Staphylococcus aureus infection as the cause of diseases classified elsewhere; Z20.822 Contact with and (suspected) exposure to COVID-19
CPT/HCPCS: 36415; 74177; 80048; 80076; 81001; 81025; 83605; 85025; 85027; 87040; 87071; 87077; 87147; 87186; 87205; 87635; 96365; 99285; J2543; Q9967

== ENCOUNTER 2020-08-22 14:24 | Outpatient (REF) | payer OTHER, SELFPAY | END 2020-08-22 14:25 | disposition home or self-care (01) | LOC: HO.LNP 14:24 | PROVIDERS: Visit Provider Internal Medicine | DX: D72.829 Elevated white blood cell count, unspecified (principal); Z98.890 Other specified postprocedural states; T81.41XD Infection following a procedure, superficial incisional surgical site, subsequent encounter; Z79.899 Other long term (current) drug therapy | CPT/HCPCS: 87071; 87077; 87186; 87205 ==

== ENCOUNTER → 2020-08-28 14:27 | Outpatient (BNVA) | payer OTHER, SELFPAY | PROVIDERS: PCP Internal Medicine; Visit Provider Surgery | DX: T81.49XA Infection following a procedure, other surgical site, initial encounter (principal) | CPT/HCPCS: 99212 ==

== ENCOUNTER → 2020-09-11 15:48 | Outpatient (BNVA) | payer OTHER, SELFPAY | PROVIDERS: PCP Internal Medicine; Visit Provider Surgery | DX: T81.49XA Infection following a procedure, other surgical site, initial encounter (principal); Z98.890 Other specified postprocedural states | CPT/HCPCS: 99212 ==

== ENCOUNTER → 2020-10-09 15:28 | Outpatient (BNVA) | payer OTHER, SELFPAY | PROVIDERS: PCP Internal Medicine; Visit Provider Surgery | DX: T81.41XD Infection following a procedure, superficial incisional surgical site, subsequent encounter (principal) | CPT/HCPCS: 99212 ==

== ENCOUNTER → 2020-11-13 15:27 | Outpatient (BNVA) | payer OTHER, SELFPAY | PROVIDERS: PCP Internal Medicine; Visit Provider Surgery | DX: T81.49XD Infection following a procedure, other surgical site, subsequent encounter (principal) | CPT/HCPCS: 99212 ==

== ENCOUNTER 2021-01-09 15:23 | Outpatient (REF) | payer OTHER, SELFPAY ==
[2021-01-09 15:48] LABS: MANUAL DIFF FLAG NO
[2021-01-09 15:54] LABS: Basophils Percent Auto 0.3 % (0-2); Eosinophils Absolute Auto 0.2 X10*3/uL (0.0-0.4); Eosinophils Percent Auto 1.7 % (0-4); Hematocrit 38.2 % (37-47); Hemoglobin 11.8 g/dl (12.0-16.0); Imm Gran Abs Auto 0.03 X10*3/uL (0.00-0.03); Imm Gran Pct Auto 0.3 % (0.0-0.4); Lymphocytes Absolute Auto 2.8 X10*3/uL (1.2-4.9); Lymphocytes Percent Auto 31.4 % (20-40); Mean Corpuscular HGB Conc 30.9 g/dl (31.0-35.0); Mean Corpuscular Hemoglobin 25.3 pg (27.0-33.0); Mean Corpuscular Volume 81.8 fL (80-98); Mean Platelet Volume 10.9 fL (9.4-12.3); Monocytes Absolute Auto 0.7 X10*3/uL (0.1-1.2); Monocytes Percent Auto 7.2 % (2-11); Neutrophils Absolute Auto 5.3 X10*3/uL (2.0-8.3); Neutrophils Percent Auto 59.1 % (45-73); Platelet Count 334 X10*3/uL (160-400); Red Blood Count 4.67 X10*6/uL (4.20-5.50); Red Cell Distribution Width 15.9 % (11.0-16.0)
[2021-01-09 16:25] LABS: Alanine Aminotransferase 10 U/L (0-31); Albumin Level 4.1 g/dL (3.5-5.0); Alkaline Phosphatase 74 U/L (39-117); Aspartate Amino Transferase 17 U/L (5-31); Bilirubin Total 0.4 mg/dL (0.0-1.0); Blood Urea Nitrogen 12 mg/dL (9-16); C Reactive Protein 0.67 mg/dL (< or = 0.50); Calcium 9.2 mg/dL (8.4-10.2); Estimated Glomerular Filt Rate > 60; Glucose Random 93 mg/dL (60-115); Total Protein 7.1 g/dL (6.5-8.0)
[2021-01-09 16:40] LABS: Anion Gap 12 (12-20); Carbon Dioxide 25 mmol/L (22-29); Chloride 106 mmol/L (96-108); Potassium 3.9 mmol/L (3.3-5.1); Sodium 139 mmol/L (135-145)
[2021-01-09 16:44] LABS: Vitamin B12 228 pg/mL (200-900)
== END 2021-01-09 15:24 | disposition home or self-care (01) ==
LOC: HO.LAB 15:23
PROVIDERS: PCP Internal Medicine; Visit Provider Internal Medicine
DX: R42 Dizziness and giddiness (principal); R63.5 Abnormal weight gain; K74.60 Unspecified cirrhosis of liver
CPT/HCPCS: 36415; 80053; 82306; 82607; 84443; 85025; 86140

== ENCOUNTER 2021-07-19 13:52 | Outpatient (REF) | payer OTHER, SELFPAY ==
[2021-07-19 15:20] LABS: Influenza A PCR NEGATIVE (Negative); Influenza B PCR NEGATIVE (Negative); Resp Syncy Virus RNA Qual PCR NEGATIVE (Negative); SARS COV2 PCR INHOUSE POSITIVE (Negative)
== END 2021-07-19 13:53 | disposition home or self-care (01) ==
LOC: HO.LNP 13:52
PROVIDERS: Visit Provider Internal Medicine
DX: Z20.822 Contact with and (suspected) exposure to COVID-19 (principal)
CPT/HCPCS: 0241U

== ENCOUNTER 2022-11-07 15:40 | Outpatient (REF) | payer OTHER, SELFPAY ==
[2022-11-07 15:57] LABS: MANUAL DIFF FLAG NO
[2022-11-07 17:52] LABS: Basophils Absolute Auto 0.1 X10*3/uL (0.0-0.2); Basophils Percent Auto 0.8 % (0-2); Eosinophils Absolute Auto 0.2 X10*3/uL (0.0-0.4); Eosinophils Percent Auto 2.3 % (0-4); Hematocrit 38.2 % (37.0-47.0); Imm Gran Abs Auto 0.05 X10*3/uL (0.00-0.03); Imm Gran Pct Auto 0.5 % (0.0-0.4); Lymphocytes Absolute Auto 2.4 X10*3/uL (1.2-4.9); Lymphocytes Percent Auto 24.5 % (20-40); Mean Corpuscular HGB Conc 31.4 g/dl (31.0-35.0); Mean Corpuscular Hemoglobin 27.4 pg (27.0-33.0); Mean Corpuscular Volume 87.2 fL (80.0-98.0); Mean Platelet Volume 10.8 fL (9.4-12.3); Monocytes Absolute Auto 0.8 X10*3/uL (0.1-1.2); Monocytes Percent Auto 7.9 % (2-11); Neutrophils Absolute Auto 6.3 x10*3/uL (2.0-8.3); Platelet Count 422 X10*3/uL (160-400); Red Blood Count 4.38 X10*6/uL (4.20-5.50); Red Cell Distribution Width 13.7 % (11.0-16.0); White Blood Count 9.8 X10*3/uL (4.8-10.8)
[2022-11-07 17:55] LABS: Appearance Urine Clear; Color Urine Yellow; Glucose Urine UA Negative (Negative); Leukocyte Esterase Urine Negative (Negative); Nitrite Urine Positive (Negative); Specific Gravity - Urine >= 1.030 (1.005-1.025); UMIC TRIGGER UA YES; Urine Blood Large (3+) (Negative); Urine Ketones Trace mg/dL (Negative); Urine Protein 30 (1+) mg/dL (Neg-Trace)
[2022-11-07 18:07] LABS: Alanine Aminotransferase 10 U/L (0-31); Alkaline Phosphatase 70 U/L (39-117); Anion Gap 13 (12-20); Aspartate Amino Transferase 15 U/L (5-31); Bilirubin Total 0.7 mg/dL (0.0-1.0); Blood Urea Nitrogen 10 mg/dL (9-16); C Reactive Protein 4.07 mg/dL (< or = 0.50); Calcium 9.3 mg/dL (8.4-10.2); Carbon Dioxide 28 mmol/L (22-29); Chloride 103 mmol/L (96-108); Estimated Glomerular Filt Rate 57; Glucose Random 76 mg/dL (60-115); Sodium 140 mmol/L (135-145)
[2022-11-07 18:13] LABS: Bacteria Urine 4+ (None Seen); RBC Urine >20 /HPF (0-2)
== END 2022-11-07 15:41 | disposition home or self-care (01) ==
LOC: HO.LAB 15:40
PROVIDERS: PCP Internal Medicine; Visit Provider Internal Medicine
DX: R39.89 Other symptoms and signs involving the genitourinary system (principal); R31.9 Hematuria, unspecified
CPT/HCPCS: 36415; 80053; 81001; 85025; 86140; 87086; 87088; 87186

== ENCOUNTER 2022-11-12 15:17 | Outpatient (REF) | payer OTHER, SELFPAY ==
--- NOTE | ~2022-11-12 | US_ITS ---
EXAMINATION: US RETROPERITONEAL COMPLETE (RENAL) CLINICAL INFORMATION: Hematuria. COMPARISON: CT abdomen and pelvis with contrast 08/12/2020. MRI abdomen with and without contrast 09/25/2017. TECHNIQUE: Real-time imaging of the kidneys and bladder. FINDINGS: RIGHT KIDNEY: 11.1 x 4.1 x 4.7 cm (SAG x AP x TRV). The kidney is normal in size, contour, and echogenicity. Renal cortical thickness is normal. No calculi or focal parenchymal lesions. No hydronephrosis. LEFT KIDNEY: 11.3 x 4.8 x 4.1 cm (SAG x AP x TRV). The kidney is normal in size, contour, and echogenicity. Renal cortical thickness is normal. No calculi or focal parenchymal lesions. No hydronephrosis. BLADDER: Well distended and normal. Bilateral ureteral jets are demonstrated. Prevoid bladder volume is 186 mL. Postvoid bladder volume is 12.2 mL. US/US retroperitoneal comp IMPRESSION: Unremarkable exam.
== END 2022-11-12 15:18 | disposition home or self-care (01) ==
LOC: HO.US 15:17
PROVIDERS: PCP Internal Medicine; Visit Provider Internal Medicine
DX: R31.9 Hematuria, unspecified (principal)
CPT/HCPCS: 76770

== ENCOUNTER 2023-10-08 14:02 | Outpatient (REF) | payer OTHER, SELFPAY ==
[2023-10-08 14:18] LABS: MANUAL DIFF FLAG NO
[2023-10-08 15:01] LABS: Basophils Absolute Auto 0.1 X10*3/uL (0.0-0.2); Eosinophils Absolute Auto 0.2 X10*3/uL (0.0-0.4); Eosinophils Percent Auto 1.9 % (0-4); Hematocrit 37.9 % (37.0-47.0); Hemoglobin 12.3 g/dl (12.0-16.0); Imm Gran Abs Auto 0.02 X10*3/uL (0.00-0.03); Imm Gran Pct Auto 0.2 % (0.0-0.4); Lymphocytes Absolute Auto 2.9 X10*3/uL (1.2-4.9); Lymphocytes Percent Auto 34.4 % (20-40); Mean Corpuscular HGB Conc 32.5 g/dl (31.0-35.0); Mean Corpuscular Hemoglobin 27.8 pg (27.0-33.0); Mean Corpuscular Volume 85.7 fL (80.0-98.0); Mean Platelet Volume 10.3 fL (9.4-12.3); Monocytes Absolute Auto 0.5 X10*3/uL (0.1-1.2); Monocytes Percent Auto 5.7 % (2-11); Neutrophils Absolute Auto 4.8 x10*3/uL (2.0-8.3); Neutrophils Percent Auto 56.8 % (45-73); Platelet Count 474 X10*3/uL (160-400); Red Blood Count 4.42 X10*6/uL (4.20-5.50); Red Cell Distribution Width 14.8 % (11.0-16.0); White Blood Count 8.4 X10*3/uL (4.8-10.8)
[2023-10-08 15:05] LABS: Appearance Urine Clear; Color Urine Yellow; Glucose Urine UA Negative (Negative); Leukocyte Esterase Urine Negative (Negative); Nitrite Urine Negative (Negative); Urine Blood Negative (Negative); Urine Ketones Negative (Negative); Urine Protein Negative (Neg-Trace)
[2023-10-08 15:33] LABS: Alanine Aminotransferase 12 U/L (0-31); Albumin Level 4.1 g/dL (3.5-5.0); Alkaline Phosphatase 73 U/L (39-117); Anion Gap 10 (12-20); Aspartate Amino Transferase 17 U/L (5-31); Bilirubin Total 0.3 mg/dL (0.0-1.0); Blood Urea Nitrogen 12 mg/dL (9-16); Calcium 9.2 mg/dL (8.4-10.2); Carbon Dioxide 26 mmol/L (22-29); Chloride 106 mmol/L (96-108); Cholesterol 196 mg/dL (<200); Estimated Glomerular Filt Rate > 60; Glucose Random 87 mg/dL (60-115); Sodium 138 mmol/L (135-145); Total Protein 7.5 g/dL (6.5-8.0)
[2023-10-08 17:33] LABS: CT PCR NOT DETECTED (Not Detect.); NG PCR NOT DETECTED (Not Detect.)
[2023-10-09 07:59] LABS: Syphilis Screen Nonreactive (Nonreactive)
[2023-10-09 08:11] LABS: HIV AB/AG Nonreactive (Nonreactive); HIV Num 1 0.05 S/CO (0.00-0.99)
== END 2023-10-08 14:03 | disposition home or self-care (01) ==
LOC: HO.LAB 14:02
PROVIDERS: PCP Internal Medicine; Visit Provider Internal Medicine
DX: Z11.4 Encounter for screening for human immunodeficiency virus [HIV] (principal); K21.9 Gastro-esophageal reflux disease without esophagitis; N18.9 Chronic kidney disease, unspecified; Z20.2 Contact with and (suspected) exposure to infections with a predominantly sexual mode of transmission
CPT/HCPCS: 0353U; 80053; 81003; 82465; 85025; 86780; 87086; 87088; 87186; 87389

== ENCOUNTER 2024-06-04 11:50 | Day surgery (SDC) | payer OTHER, SELFPAY ==
[2024-06-02 08:59] VITALS: BMI 28.9
--- NOTE | 2024-06-02 14:27 | HO.ANESPROP2 ---
Documented by User: Crystal Shore NP 06/02/24 14:27 HPI - Anesthesia Eval Consult details Narrative: 48yo F for Colonoscopy PMFSH Active Problems Active Problems: All Active Problems Leukocytosis (Acute) Status post abdominoplasty (Acute) Wound infection after surgery (Acute) Past Medical History Medical History Wound infection after surgery No known health problems Surgical History Surgical History Status post abdominoplasty Previous section Social History Social History Household Members: Family Housing: Condominium Do you presently have visiting nurse or other home services: No Alcohol intake: never Patient Tobacco Use Status: Never used Tobacco Have you been hit, kicked, punched, or otherwise hurt by someone within the past year? If so, by whom?: No Are you DNR?: No Advance Directives: No Advance Directives Information Provided: Yes Recently lost weight without trying: No Nutrition Risks: No Nutritional Risk Patient : No service: No Current occupational status: employed Meds Allergies Allergy/AdvReac Type Severity Reaction Status Date / Time No Known Allergies Allergy Verified 11/13/20 15:34 [No Known Allergies*] Exam Height,Weight and Vital Signs: Height 5 ft 1 in Weight 69.4 kg Assessment and Plan Assessment Anesthesia Assessment: Chart Reviewed Documented by User: Katherine Stephens MD 06/04/24 12:55 PMFSH Past Medical History Medical History Wound infection after surgery No known health problems Surgical History Surgical History Status post abdominoplasty Previous section History of Problems with Anesthesia: No Social History Social History Household Members: Family Housing: Condominium Do you presently have visiting nurse or other home services: No Alcohol intake: never Patient Tobacco Use Status: Never used Tobacco Have you been hit, kicked, punched, or otherwise hurt by someone within the past year? If so, by whom?: No Are you DNR?: No Advance Directives: No Advance Directives Information Provided: Yes Recently lost weight without trying: No Nutrition Risks: No Nutritional Risk Patient : No service: No Current occupational status: employed Meds Allergies Allergy/AdvReac Type Severity Reaction Status Date / Time No Known Allergies Allergy Verified 11/13/20 15:34 [No Known Allergies*] Exam Airway Mallampati Class: II TM Dist: >3cm Neck ROM: Full Loose/Missing/Broken Teeth: No Heart: RRR Lungs: CTA Assessment and Plan Assessment Anesthesia Assessment: Anesthesia Plan Discussed Final Anesthetic Review History of Problems with Anesthesia: No NPO: Yes ASA Class: II Final Preanesthetic Review: Meds/Allgs Chart Reviewed, Consent Obtained/Reviewed and Anes Risks/Benef Reviewed Patient Risk: Low Procedure Risk: Low Anesthetic Plan Anesthetic Plan: MAC: Disposition: Standard PACU
[2024-06-04 12:31] VITALS: BP 150/76; PULSE 65; RESP 18; TEMP 36.6; O2SAT 98
[2024-06-04 13:44] VITALS: BP 98/56; PULSE 64; RESP 16; TEMP 36.4; O2SAT 97
--- NOTE | 2024-06-04 13:47 | PM.OP ---
Brief Operative Note Date of Service: 06/04/24 Pre-op diagnosis: Screening Post-op diagnosis: other (Colon polyp) Procedure: Colonoscopy to the cecum with bx/removal of polyp Surgeon: Osiel Levi MD Anesthesia: MAC Was an Vp Design used for this Procedure?: No Estimated blood loss (mL): 2.0 Pathology: other (A. Polyp at 60cm) Condition: stable Disposition: PACU
[2024-06-04 14:01] VITALS: BP 126/79; PULSE 70; RESP 17; TEMP 36.1; O2SAT 99
--- NOTE | 2024-06-04 22:36 | OP_ITS ---
DATE OF SERVICE: 06/04/2024 SURGEON: Osiel Levi MD INDICATIONS: The patient presents for evaluation of colorectal cancer screening. Full consent has been obtained from her for this, including risks of bleeding and perforation. PREOPERATIVE DIAGNOSIS: Colorectal cancer screening. POSTOPERATIVE DIAGNOSIS: PROCEDURE PERFORMED: Colonoscopy to the cecum with biopsy and removal of polyp. ESTIMATED BLOOD LOSS: COMPLICATIONS: ANESTHESIA: Monitored anesthesia care. ASSISTANTS: SPECIMENS: POSTOPERATIVE DIAGNOSES: Colorectal cancer screening, small colon polyp, internal hemorrhoids. DESCRIPTION OF PROCEDURE: The patient was placed in the left lateral decubitus position. The digital rectal exam revealed no abnormalities. The Olympus video pediatric colonoscope was entered into the rectum and advanced easily to the cecum. Once in the cecum, I did identify normal-appearing cecal pouch with appendiceal orifice and a normal-appearing ileocecal valve. The entire cecum and ileocecal valve appeared normal. Scope was slowly withdrawn assessing all mucosal surfaces carefully. Preparation was excellent. At 60 cm was a flat, approximately 3 mm polyp, which was biopsied and completely removed with a cold biopsy forceps. I did not visualize any other polyps, colitis, or angiodysplasia. In the rectum, scope was retroflexed visualizing internal hemorrhoids, but no other pathology. The rectal mucosa appeared normal. Scope was straightened and withdrawn from the patient. She tolerated the procedure well and was returned to the recovery area in stable condition. IMPRESSION: 1. Small colon polyp. 2. Internal hemorrhoids. PLAN: The results of the pathology will be checked if this is a tubular adenoma, I would recommend a followup colonoscopy in 5 years. If it is only hyperplastic, I would recommend a followup colonoscopy in 10 years. She will otherwise see me on a p.r.n. basis. MD AGUSTINA Bowen/EDUARDO / [id number]
== END 2024-06-04 14:26 | disposition home or self-care (01) ==
PROVIDERS: PCP Internal Medicine; Visit Provider Internal Medicine
PROC: 0DJD8ZZ Inspection of Lower Intestinal Tract, Via Natural or Artificial Opening Endoscopic (ICD-10-PCS; CPT 45378; principal; 2024-06-04 12:50)
DX: Z12.11 Encounter for screening for malignant neoplasm of colon (principal); K63.5 Polyp of colon; K57.30 Diverticulosis of large intestine without perforation or abscess without bleeding; K64.8 Other hemorrhoids; K59.09 Other constipation; Z98.890 Other specified postprocedural states
CPT/HCPCS: 45380; 88305; J2003; J2704